=== PATIENT | male | born 1940 | race Hispanic/Latino ===

== ENCOUNTER 2016-09-25 12:58 | Day surgery (SDC) | payer MEDICARE ==
[2016-09-18 07:59] VITALS: BMI 24.3
[2016-09-25 13:23] LABS: ADD MANUAL DIFF? NO
[2016-09-25 13:41] LABS: INR 1.01 (0.93-1.08); PARTIAL THROMBOPLASTIN TIME 27.4 Seconds (23.7-30.8)
[2016-09-25 13:44] LABS: BLOOD UREA NITROGEN 20 mg/dL (7-21); CALCIUM 9.4 mg/dL (8.4-10.5); CARBON DIOXIDE 29 mmol/L (21-33); CHLORIDE 108 mmol/L (98-107); CHOLESTEROL 197 mg/dL (130-200); GFR AFRICAN-AMERICAN > 60; GLUCOSE,RANDOM 98 mg/dL (70-110); POTASSIUM 4.3 mmol/L (3.6-5.0); SODIUM 144 mmol/L (132-148)
[2016-09-25 14:07] LABS: GRAN % 65.9 % (50.0-68.0); HEMATOCRIT 41.7 % (42.0-52.0); LYMPH % 23.1 % (22.0-35.0); MEAN CELL VOLUME 88.2 fL (80.0-105.0); MEAN CORPUSCULAR HEMOGLOBIN 31.7 pg (25.0-35.0); MEAN PLATELET VOLUME 9.5 fl (7.0-11.0); PLATELET COUNT 191 10^3/uL (120.0-450.0); RED CELL DISTRIBUTION WIDTH 13.6 % (11.5-14.5); WHITE BLOOD COUNT 8.2 10^3/ul (4.5-11.0)
[2016-09-25 14:08] LABS: BASO # 0.02 K/mm3 (0.0-2.0); BASO % 0.2 % (0.0-3.0); EOS # 0.2 (0.0-0.7); EOS % 2.9 % (1.5-5.0); GRAN # 5.38 (1.4-6.5); LYMPH # 1.9 (1.2-3.4); MONO # 0.7 (0.1-0.6); MONO % 7.9 % (1.0-6.0)
[2016-09-25] MEDS ORDERED: Liquid Adhesive TOP ONE (16:36)
[2016-09-25] MEDS ORDERED: Lidocaine 2% Inj (20ml) ONE (16:36)
[2016-09-25] MEDS ORDERED: Midazolam 2 MG/2 ML VIAL ONE (17:07)
[2016-09-25 19:12] VITALS: RESP 20; TEMP 97.8
--- NOTE | 2016-09-25 19:16 | OP ---
PROCEDURE DATE: 09/25/2016 PROCEDURE: Pacemaker dual chamber generator change as well as pocket revision. PREPROCEDURE DIAGNOSES: Device being at [facility] or recommended for replacement, sick sinus syndrome, syn cope. INDICATIONS: The patient is a 76-year-old male with past medical history significant for u nexplained syncope, some 11 years ago and at that time underwent permanent pacemaker implantation. T he patient has been followed regularly here at [facility] and was then found to have his device end of life. He was referred to me from Dr. Juan Malik. DESCRIPTION OF PROCEDURE: Informed consent was received for the procedure as well as conscious sedat ion of which he received a total of 2 mg of Versed and 50 mcg of fentanyl in divided doses. The left pectoral area was draped and prepped in a sterile fashion, 2% lidocaine solution was injected into t he surgical site. Using an 11 blade, a 3.5 cm incision was made 2 fingerbreadths below the clavicle. The device and the system were interrogated under fluoroscopy prior to making an incision, which sh owed a well-seated well-situated dual chamber permanent pacemaker with the RV lead in a septal positi on, RA lead in appropriate position. Using blunt dissection and electrocautery, the fascial planes w ere dissected. The device was identified. The existing device was exteriorized. The old device was removed from the pocket. This was a [employer] EnPulse IS1 device, serial #[id number] was exterior ized. The leads were then removed from the device, of note the patient was not dependent. The right ventricular lead was removed. This was a 5076, 58 cm lead, serial #[id number]. The parameters on this lead are as follows: Right ventricle has a threshold of 0.5 volts at 1.1 volts with a current o f 2.1 volts R waves measured 23.8. The right atrial lead is a 5076, 52 cm lead, serial [id number]. Threshold on this lead is as follows is 0.5 volts at 0.5 milliseconds at a current of 1.0 milliamps, impedance of 452, P waves measured 3.9. The leads were then inserted into the new pulse generator, which is a [employer] MRI-safe Advisa device, serial #[id number]. A detailed capsulectomy was perfo rmed. A pocket was inspected for bleeders of which there was none after electrocautery. The pocket was irrigated with bacitracin solution. The leads and the device were then coiled and placed in the pocket. A retention suture was applied to avoid device migration. Two layers of 2-0 Vicryl were the n used to bring together the fascial and skin layers. Final layer was closed with Mastisol and Steri -Strips. IMPRESSION: Successful permanent pacemaker generator change. PLAN: The patient should remain monitored during the post-anesthesia protocol. The patient will be discharged on Keflex 500 mg q. 8 hours, to follow up for routine device check. The remainder of his permanent pacemaker care will be performed by the pacemaker center here at [facility]. Thank you for allowing me to participate in person been in the care of your patient. Please do not h esitate to call for any questions in regards to his care. Yours sincerely. Chidi Bhakta MD cc:Juan Malik MD 481 TT: 09/25/2016 19:14:55 jn
[2016-09-25 19:25] VITALS: BP 163/79; PULSE 66; O2SAT 97
== END 2016-09-25 19:45 | disposition home or self-care (01) ==
LOC: CATH 12:58
PROVIDERS: ATTEND Internal Medicine Cardiovascular Disease
DX: Z45.010 Encounter for checking and testing of cardiac pacemaker pulse generator [battery] (principal); I49.5 Sick sinus syndrome; R00.1 Bradycardia, unspecified; Z79.02 Long term (current) use of antithrombotics/antiplatelets
CPT/HCPCS: 33228; 36415; 80048; 80061; 85025; 85610; 85730; 99152; 99153; C1785; J0690; J2250; J3010; J7040

== ENCOUNTER 2016-12-07 16:22 | Emergency (ER) | payer MEDICARE ==
[2016-12-07 16:38] VITALS: BP 183/98; PULSE 60; RESP 18; TEMP 97.6; O2SAT 99
[2016-12-07 16:39] VITALS: BMI 25.1
[2016-12-07] MEDS ORDERED: TDAP Vaccine 0.5 mL Syr IM ONE (16:48)
--- NOTE | 2016-12-07 16:52 | ED PDOC ---
Arrival/HPI - General Chief Complaint: Abnormal Skin Integrity Time Seen by Provider: 12/07/16 16:48 - History of Present Illness Narrative History of Present Illness (Text): 76M c/o laceration of the right arm after a metal bar fell off his garage door and hit his arm about 2 hours ago. he denies any significant arm pain, only some burning at the laceration site. unsure of last tetanus vacc. Past Medical History - Cardiac Hx Hypertension: Yes Hx Pacemaker: Yes - Neurological Hx Paralysis: No - Hematological/Oncological Hx Blood Transfusions: No - Musculoskeletal/Rheumatological Hx Musculoskeletal Disorders: No - Psychiatric Hx Substance Use: No - Surgical History Other/Comment: Pcaemaker - Anesthesia Hx Anesthesia Reactions: No Hx Malignant Hyperthermia: No Family/Social History Family/Social History: Other (nc) Smoking Status: Never Smoked Hx Alcohol Use: No Hx Substance Use: No Allergies/Home Meds Allergies/Adverse Reactions: Allergies No Known Allergies Allergy (Verified 09/18/16 07:59) Home Medications: Home Meds Medication Instructions Recorded Confirmed Clopidogrel [Plavix] 75 mg PO DAILY 09/18/16 12/07/16 Fludrocortisone [Florinef Acetate] 0.1 mg PO MWF 09/18/16 12/07/16 Metoprolol Succinate [Metoprolol 100 mg PO DAILY 09/18/16 12/07/16 Succinate Xl] Review of Systems - Review of Systems Constitutional: absent: Fevers Respiratory: absent: SOB Cardiovascular: absent: Chest Pain Gastrointestinal: absent: Vomiting Physical Exam Vital Signs Reviewed: Yes Vital Signs Temp Pulse Resp BP Pulse Ox 12/07/16 16:37 97.6 F 60 18 183/98 H 99 Appearance: Positive for: Well-Appearing, Non-Toxic, Comfortable Pain Distress: None Mental Status: Positive for: Alert and Oriented X 3 - Systems Exam Head: Present: Atraumatic Respiratory/Chest: No: Respiratory Distress, Accessory Muscle Use Cardiovascular: Present: Regular Rate and Rhythm Upper Extremity: Present: NORMAL PULSES, Other (superficial skin tears and abrasions over dorsal aspect of right forearm. no bony ttp. no ttp of wrist. nl rom wrist and elbow. ) Neurological: Present: GCS=15, Motor Func Grossly Intact, Normal Sensory Function Psychiatric: Present: Alert, Oriented x 3 Medical Decision Making ED Course and Treatment: the wound was cleansed thoroughly and dressed w abx ointment and gauze. xr r forearm- no fracture - RAD Interpretation Radiology Orders: 12/07/16 16:49 FOREARM RIGHT [RAD] Stat - Medication Orders Current Medication Orders: Discontinued Medications Tetanus/Reduced Diphtheria/Acell Pertussis (Boostrix Vaccine Inj) 0.5 ml IM .ONCE ONE Stop: 12/07/16 16:49 Last Admin: 12/07/16 16:55 Dose: 0.5 ml Disposition/Present on Arrival - Present on Arrival Any Indicators Present on Arrival: No History of DVT/PE: No History of Uncontrolled Diabetes: No Urinary Catheter: No History of Decub. Ulcer: No History Surgical Site Infection Following: None - Disposition Have Diagnosis and Disposition been Completed?: Yes Diagnosis: Skin tear Disposition: HOME/ ROUTINE Disposition Time: 17:25 Condition: GOOD Discharge Instructions (ExitCare): Skin Tear (ED) Additional Instructions: Please follow up with your doctor. Wash the wound with soap and water daily and change dressing. Return to the ER for any signs of infection or for any other concerns. Forms: [employer] (Haitian)
--- NOTE | 2016-12-08 08:50 | RAD ---
PROCEDURE: Radiographs of the Right the in Forearm HISTORY: hit by bar COMPARISON: None available. TECHNIQUE: Frontal and lateral views obtained. FINDINGS: BONES: No fracture or destructive lesion. JOINT SPACES: Unremarkable. OTHER FINDINGS: Focal soft tissue swelling mid forearm. No visulaized radiopaque/visualized foreign body. IMPRESSION: Soft tissue swelling without acute articular or osseous abnormality. No preliminary report provided by emergency department personnel.
== END 2016-12-07 17:49 | disposition home or self-care (01) ==
LOC: ED 16:22
DX: S51.811A Laceration without foreign body of right forearm, initial encounter (principal); W22.8XXA Striking against or struck by other objects, initial encounter; Y93.89 Activity, other specified; Y92.008 Other place in unspecified non-institutional (private) residence as the place of occurrence of the external cause; Z23 Encounter for immunization

== ENCOUNTER 2018-07-16 14:57 | Outpatient (CLI) | payer MEDICARE | END 2018-07-16 14:58 | disposition home or self-care (01) | LOC: CARDIO 14:57 ==